=== PATIENT | female | born 1960 | race Caucasian/White ===

== ENCOUNTER 2022-09-22 06:46 | Day surgery (SDC) | payer OTHER ==
[2022-09-22] MEDS ORDERED: Lidocaine 1% with EPINEPHrine 1:100,000 50 ML MDV ONE (07:00)
[2022-09-22] MEDS ORDERED: Propofol 200 MG/20 ML SDV ONE ×2 (07:40→08:53)
[2022-09-22] MEDS ORDERED: Midazolam 1 MG/ML 2 ML SDV ONE (07:40)
[2022-09-22] MEDS ORDERED: Sodium Chloride 0.9% 1,000 ML IV SCH (08:30)
[2022-09-23] MEDS: Lidocaine 1% w/EPINEPHrine 50 ML, Sodium Bicarbonate 5 MEQ in Sodium Chloride 0.9% 950 ML INJECT SCH (08:25)
[2022-09-25] MEDS: Lidocaine 1% w/EPINEPHrine 50 ML, Sodium Bicarbonate 5 MEQ in Sodium Chloride 0.9% 950 ML INJECT SCH (10:41)
== END 2022-09-22 10:47 | disposition home or self-care (01) ==
LOC: JP.SDS 06:46
PROVIDERS: ATTEND Surgery
DX: I87.2 Venous insufficiency (chronic) (peripheral) (principal); K21.9 Gastro-esophageal reflux disease without esophagitis; M19.90 Unspecified osteoarthritis, unspecified site; M79.10 Myalgia, unspecified site; Z91.041 Radiographic dye allergy status; Z79.899 Other long term (current) drug therapy; Z88.5 Allergy status to narcotic agent; Z88.8 Allergy status to other drugs, medicaments and biological substances; Z88.0 Allergy status to penicillin
CPT/HCPCS: 36475; J1642; J2250; J2704